=== PATIENT | female | born 1960 | race Caucasian/White ===

== ENCOUNTER 2021-03-10 13:16 | Emergency (ER) | payer OTHER ==
[~2021-03-10] VITALS: Ht 153.7 cm; Wt 70.0 kg
[2021-03-10 13:47] VITALS: BP 138/55
--- NOTE | 2021-03-10 13:54 | NUR ---
PATIENT AMBULATED TO BED 4.
--- NOTE | 2021-03-10 14:00 | NUR ---
60YO F C/O 10/10 LEFT LOWER LEG PAIN X 4 DAYS. PT DENIES NUMBNESS AND WEAKNESS OF AFFECTED AREA. TOOK IBUPROFEN LAST NIGHT WITH NO RELIEF. PT WENT TO SEE MD AND WAS REFERRED TO ER TO RULE OUT DVT. IN ED, VSS. AOX4. BS ELEVATED AT 324. NO REDNESS OR SWELLING OF LEFT LOWER EXTREMITY. PT AMBULATORY. PT POSITIONED COMFORTABLY IN BED WITH 2 SIDERAILS UP. ERMD MADE AWARE OF PT STATUS. PMH: DM MEDS: INSULIN, METFORMIN NKA
[2021-03-10] MEDS ORDERED: KETOROLAC 30 MG/ML VIAL IM ONE (14:05)
[2021-03-10 14:49] LABS: ANION GAP 11.9 (8-16); CARBON DIOXIDE 26.2 mmol/L (21-32); CREATININE 0.9 mg/dL (0.6-1.3); POTASSIUM 4.1 mmol/L (3.5-5.1)
[2021-03-10] MEDS ORDERED: NAPR-54 PO (15:26)
[2021-03-10 15:32] VITALS: BP 138/55
== END 2021-03-10 15:33 | disposition home or self-care (01) ==
LOC: MED 13:16
DX: M79.605 Pain in left leg (principal); E11.9 Type 2 diabetes mellitus without complications; Z79.899 Other long term (current) drug therapy; Z98.890 Other specified postprocedural states
CPT/HCPCS: 36415; 73590; 80048; 93971; 96372; 99285; J1885; Q0092